=== PATIENT | male | born 1965 | race Caucasian/White ===

== ENCOUNTER → 2021-03-14 08:16 | Outpatient (CLI) | payer OTHER, SELFPAY ==
[2021-03-14 21:56] LABS: COVID19 - ORCAS (NP or Nasal) Negative (Negative)
== END ==
PROVIDERS: PCP Family Medicine; Visit Provider Physician Assistant Medical
DX: Z20.822 Contact with and (suspected) exposure to COVID-19 (principal)
CPT/HCPCS: U0003

== ENCOUNTER → 2021-05-23 08:24 | Outpatient (CLI) | payer OTHER, SELFPAY ==
[2021-05-23 18:59] LABS: Add Manual Diff / Slide Review NO; Basophils Absolute Auto 0 /uL (0-100); Basophils Percent Auto 0.8 % (0-2); Eosinophils Absolute Auto 200 /uL (0-450); Hematocrit 39.6 % (41-53); Lymphocytes Absolute Auto 1400 /uL (1100-4500); Lymphocytes Percent Auto 28.5 % (25-40); Mean Corpuscular HGB Conc 35.3 % (30-36); Mean Corpuscular Hemoglobin 29.6 PG (26-34); Mean Corpuscular Volume 83.9 fL (80-100); Monocytes Absolute Auto 400 /uL (0-900); Monocytes Percent Auto 9.3 % (3-14); Neutrophils Absolute Auto 2700 /uL (1500-7000); Neutrophils Percent Auto 56.4 % (50-75); Platelet Count 199 X10^3/uL (150-400); Red Blood Cell Count 4.72 X10^6/uL (4.5-5.9); Red Cell Distribution Width 13.5 % (11.6-14.8); White Blood Cell Count 4.8 X10^3/uL (4.5-11.0)
[2021-05-23 19:24] LABS: Alanine Aminotransferase 31 IU/L (<50); Albumin 4.1 g/dL (3.5-5.0); Albumin Globulin Ratio 1.5 (1.0-2.8); Alkaline Phosphatase 57 U/L (38-126); Aspartate Aminotransferase 34 IU/L (17-59); BUN Creatinine Ratio 11.4 (6-22); Bilirubin Total 0.5 mg/dL (0.2-1.3); Blood Urea Nitrogen 18 mg/dL (9-20); Calcium 9.6 mg/dL (8.4-10.2); Carbon Dioxide 30 mmol/L (22-32); Chloride 108 mmol/L (98-107); Cholesterol 218 mg/dL (140-199); Estimated Glomerular Filt Rate 45.9 mL/min (>60); Globulin 2.8 g/dL (1.7-4.1); Glucose 95 mg/dL (70-100); HDL Cholesterol 78 mg/dL (40-60); HEMOLYSIS < 15 (0-50); LDL Cholesterol Calculated 128 mg/dL (<100); Potassium 4.6 mmol/L (3.4-5.1); Sodium 142 mmol/L (137-145); Total Protein 6.9 g/dL (6.3-8.2); Triglycerides 60 mg/dL (35-150)
[2021-05-23 19:50] LABS: Prostate Specific Antigen Scrn 0.507 ng/mL (0.1-4.0)
== END ==
PROVIDERS: PCP Family Medicine; Visit Provider Physician Assistant
DX: N18.9 Chronic kidney disease, unspecified (principal); Z12.5 Encounter for screening for malignant neoplasm of prostate
CPT/HCPCS: 80053; 80061; 85025; G0103

== ENCOUNTER → 2021-09-18 09:33 | Outpatient (CLI) | payer OTHER, SELFPAY ==
[2021-09-18 19:09] LABS: Creatinine Urine Random 63.3 mg/dL
[2021-09-18 19:14] LABS: Microalbumi Creatinin Ratio Ur 22.1 ug/mg CR (<30); Microalbumin Urine Random 1.4 mg/dL (0-1.6)
== END ==
PROVIDERS: PCP Family Medicine; Visit Provider Physician Assistant Medical
DX: F32.5 Major depressive disorder, single episode, in full remission (principal); N17.9 Acute kidney failure, unspecified; N18.9 Chronic kidney disease, unspecified; N39.0 Urinary tract infection, site not specified; R33.9 Retention of urine, unspecified; R63.4 Abnormal weight loss
CPT/HCPCS: 82043; 82570

== ENCOUNTER → 2021-09-30 09:35 | Outpatient (CLI) | payer OTHER, SELFPAY ==
[2021-09-30 18:27] LABS: Alanine Aminotransferase 22 IU/L (<50); Albumin Globulin Ratio 1.4 (1.0-2.8); Alkaline Phosphatase 62 U/L (38-126); Aspartate Aminotransferase 31 IU/L (17-59); BUN Creatinine Ratio 13.5 (6-22); Bilirubin Total 0.5 mg/dL (0.2-1.3); Blood Urea Nitrogen 21 mg/dL (9-20); Calcium 9.1 mg/dL (8.4-10.2); Carbon Dioxide 29 mmol/L (22-32); Chloride 107 mmol/L (98-107); Cholesterol 198 mg/dL (140-199); Estimated Glomerular Filt Rate 53 mL/min (>60); Globulin 2.8 g/dL (1.7-4.1); Glucose 96 mg/dL (70-100); HDL Cholesterol 81 mg/dL (40-60); HEMOLYSIS < 15 (0-50); LDL Cholesterol Calculated 108 mg/dL (<100); Potassium 4.9 mmol/L (3.4-5.1); Sodium 141 mmol/L (137-145); Total Protein 6.8 g/dL (6.3-8.2); Triglycerides 47 mg/dL (35-150)
[2021-09-30 18:35] LABS: Add Manual Diff / Slide Review NO; Basophils Absolute Auto 100 /uL (0-100); Basophils Percent Auto 1.2 % (0-2); Eosinophils Absolute Auto 200 /uL (0-450); Hematocrit 40.9 % (41-53); Hemoglobin 14.3 g/dL (13.5-17.5); Lymphocytes Absolute Auto 1400 /uL (1100-4500); Lymphocytes Percent Auto 28.7 % (25-40); Mean Corpuscular HGB Conc 35.1 % (30-36); Mean Corpuscular Hemoglobin 29.5 PG (26-34); Mean Corpuscular Volume 84.1 fL (80-100); Monocytes Absolute Auto 400 /uL (0-900); Neutrophils Absolute Auto 2700 /uL (1500-7000); Neutrophils Percent Auto 57.1 % (50-75); Platelet Count 222 X10^3/uL (150-400); Red Blood Cell Count 4.86 X10^6/uL (4.5-5.9); Red Cell Distribution Width 13.3 % (11.6-14.8); White Blood Cell Count 4.8 X10^3/uL (4.5-11.0)
[2021-09-30 18:56] LABS: Prostate Specific Antigen Scrn 0.663 ng/mL (0.1-4.0)
[2021-09-30 18:58] LABS: TSH w/ Reflex to FT4 1.06 uIU/mL (0.47-4.68)
== END ==
PROVIDERS: PCP Family Medicine; Visit Provider Physician Assistant Medical
DX: F32.5 Major depressive disorder, single episode, in full remission (principal); N17.9 Acute kidney failure, unspecified; N18.9 Chronic kidney disease, unspecified; N39.0 Urinary tract infection, site not specified; R33.9 Retention of urine, unspecified; R63.4 Abnormal weight loss; Z12.5 Encounter for screening for malignant neoplasm of prostate
CPT/HCPCS: 80053; 80061; 84443; 85025; G0103

== ENCOUNTER → 2022-10-27 09:25 | Outpatient (CLI) | payer OTHER, SELFPAY ==
[2022-10-27 20:37] LABS: Urine Chlamydia NOT DETECTED; Urine N gonorrhoeae NOT DETECTED
== END ==
PROVIDERS: PCP Physician Assistant Medical; Visit Provider Physician Assistant
DX: R30.0 Dysuria (principal); N45.1 Epididymitis; Z11.3 Encounter for screening for infections with a predominantly sexual mode of transmission
CPT/HCPCS: 87086; 87491; 87591

== ENCOUNTER → 2022-10-28 13:50 | Outpatient (CLI) | payer OTHER, SELFPAY ==
[2022-10-28 19:33] LABS: Alanine Aminotransferase 22 IU/L (<50); Albumin 3.8 g/dL (3.5-5.0); Albumin Globulin Ratio 1.3 (1.0-2.8); Alkaline Phosphatase 67 U/L (38-126); Aspartate Aminotransferase 26 IU/L (17-59); BUN Creatinine Ratio 12.2 (6-22); Bilirubin Total 0.4 mg/dL (0.2-1.3); Blood Urea Nitrogen 19 mg/dL (9-20); Calcium 8.8 mg/dL (8.4-10.2); Carbon Dioxide 28 mmol/L (22-32); Chloride 105 mmol/L (98-107); Estimated Glomerular Filt Rate 52 mL/min (>60); Globulin 2.9 g/dL (1.7-4.1); Glucose 81 mg/dL (70-100); HEMOLYSIS < 15 (0-50); Potassium 4.1 mmol/L (3.4-5.1); Sodium 139 mmol/L (137-145); Total Protein 6.7 g/dL (6.3-8.2)
[2022-10-28 19:35] LABS: Add Manual Diff / Slide Review NO; Basophils Absolute Auto 0 /uL (0-100); Basophils Percent Auto 0.8 % (0-2); Eosinophils Absolute Auto 300 /uL (0-450); Eosinophils Percent Auto 4.8 % (2-4); Hematocrit 40.8 % (41-53); Hemoglobin 14.5 g/dL (13.5-17.5); Lymphocytes Absolute Auto 1500 /uL (1100-4500); Lymphocytes Percent Auto 25.8 % (25-40); Mean Corpuscular HGB Conc 35.4 % (30-36); Mean Corpuscular Hemoglobin 29.6 PG (26-34); Mean Corpuscular Volume 83.6 fL (80-100); Monocytes Absolute Auto 400 /uL (0-900); Monocytes Percent Auto 7.5 % (3-14); Neutrophils Absolute Auto 3500 /uL (1500-7000); Neutrophils Percent Auto 61.1 % (50-75); Platelet Count 217 X10^3/uL (150-400); Red Blood Cell Count 4.88 X10^6/uL (4.5-5.9); Red Cell Distribution Width 13.5 % (11.6-14.8); White Blood Cell Count 5.7 X10^3/uL (4.5-11.0)
[2022-10-28 20:01] LABS: Prostate Specific Antigen Scrn 0.965 ng/mL (0.1-4.0)
[2022-10-28 20:06] LABS: Hepatitis B Surface Antigen NEGATIVE s/c (NEGATIVE)
[2022-10-28 20:25] LABS: HIV 1 & 2 Ab/Ag 4th Gen Combo NEGATIVE (NEGATIVE); Hep C Virus Ab w/Reflex Quant NEGATIVE s/c (NEGATIVE)
[2022-10-30 03:05] LABS: HSV 2 IGG AB < 0.91 index (0.00-0.90); HSV1IGG < 0.91 index (0.00-0.90)
[2022-11-17 15:18] LABS: RPR Screen REACTIVE
== END ==
PROVIDERS: PCP Physician Assistant Medical; Visit Provider Physician Assistant
DX: N18.9 Chronic kidney disease, unspecified (principal); N45.1 Epididymitis; Z11.3 Encounter for screening for infections with a predominantly sexual mode of transmission; Z87.440 Personal history of urinary (tract) infections; Z12.5 Encounter for screening for malignant neoplasm of prostate
CPT/HCPCS: 80053; 85025; 86592; 86695; 86696; 86803; 87340; 87389; G0103

== ENCOUNTER → 2022-11-09 09:03 | Outpatient (CLI) | payer OTHER, SELFPAY ==
[2022-11-09 19:54] LABS: Appearance Urine UA CLEAR; Bilirubin Urine UA NEGATIVE (NEGATIVE); Color Urine UA YELLOW; Glucose Urine UA NEGATIVE (Negative); Ketones Urine UA NEGATIVE (NEGATIVE); Leukocyte Esterase Urine UA NEGATIVE (NEGATIVE); Nitrite Urine UA NEGATIVE (Negative); Occult Blood Urine UA NEGATIVE (Negative); Protein Urine UA NEGATIVE (Negative); Specific Gravity Urine UA <=1.005 (1.000-1.035); Urobilinogen Urine UA 0.2 E.U./dL (0.2)
[2022-11-09 20:05] LABS: Bacteria Urine None Seen; Culture Indicated Urine Cult Not Indicated; RBC Urine None Seen (0-5/HPF); Squamous Epithelial Cell Urine None Seen (0-5/HPF); WBC Urine None Seen (0-5/HPF)
[2022-11-09 20:13] LABS: Alanine Aminotransferase 23 IU/L (<50); Albumin 3.8 g/dL (3.5-5.0); Albumin Globulin Ratio 1.3 (1.0-2.8); Alkaline Phosphatase 66 U/L (38-126); Aspartate Aminotransferase 31 IU/L (17-59); BUN Creatinine Ratio 12.8 (6-22); Bilirubin Total 0.6 mg/dL (0.2-1.3); Blood Urea Nitrogen 19 mg/dL (9-20); Carbon Dioxide 26 mmol/L (22-32); Chloride 108 mmol/L (98-107); Cholesterol 188 mg/dL (140-199); Estimated Glomerular Filt Rate 55 mL/min (>60); Glucose 109 mg/dL (70-100); HDL Cholesterol 82 mg/dL (40-60); HEMOLYSIS < 15 (0-50); LDL Cholesterol Calculated 98 mg/dL (<100); Potassium 4.5 mmol/L (3.4-5.1); Sodium 138 mmol/L (137-145); Total Protein 6.8 g/dL (6.3-8.2); Triglycerides 40 mg/dL (35-150)
== END ==
PROVIDERS: PCP Physician Assistant Medical; Visit Provider Physician Assistant
DX: N18.9 Chronic kidney disease, unspecified (principal); Z87.440 Personal history of urinary (tract) infections
CPT/HCPCS: 80053; 80061; 81001

== ENCOUNTER → 2023-04-20 09:47 | Outpatient (CLI) | payer OTHER, SELFPAY ==
[2023-04-22 08:01] LABS: RPR Screen Non Reactive (Non Reactive)
[2023-04-27 06:42] LABS: Percent Free Testosterone 1.34 % (1.50-4.20); Testosterone Free 7.83 ng/dL (5.00-21.00); Testosterone Total 584.5 ng/dL (264.0-916.0)
== END ==
PROVIDERS: PCP Physician Assistant; Visit Provider Physician Assistant
DX: N52.9 Male erectile dysfunction, unspecified (principal); Z72.51 High risk heterosexual behavior; Z20.9 Contact with and (suspected) exposure to unspecified communicable disease
CPT/HCPCS: 84402; 84403; 86592

== ENCOUNTER → 2024-02-17 09:41 | Outpatient (CLI) | payer BC, SELFPAY ==
[2024-02-17 18:54] LABS: Add Manual Diff / Slide Review NO; Basophils Absolute Auto 0 /uL (0-100); Basophils Percent Auto 0.7 % (0-2); Eosinophils Absolute Auto 200 /uL (0-450); Eosinophils Percent Auto 3.8 % (2-4); Hemoglobin 14.4 g/dL (13.5-17.5); Lymphocytes Absolute Auto 1400 /uL (1100-4500); Mean Corpuscular HGB Conc 34.2 % (30-36); Mean Corpuscular Hemoglobin 29.2 PG (26-34); Mean Corpuscular Volume 85.4 fL (80-100); Monocytes Absolute Auto 600 /uL (0-900); Monocytes Percent Auto 10.9 % (3-14); Neutrophils Absolute Auto 2900 /uL (1500-7000); Neutrophils Percent Auto 56.6 % (50-75); Platelet Count 153 X10^3/uL (150-400); Red Blood Cell Count 4.92 X10^6/uL (4.5-5.9); Red Cell Distribution Width 13.6 % (11.6-14.8); White Blood Cell Count 5.1 X10^3/uL (4.5-11.0)
[2024-02-17 19:02] LABS: HEMOLYSIS < 15 (0-50)
[2024-02-17 19:09] LABS: Alanine Aminotransferase 23 IU/L (<50); Albumin 3.9 g/dL (3.5-5.0); Albumin Globulin Ratio 1.3 (1.0-2.8); Alkaline Phosphatase 58 U/L (38-126); Aspartate Aminotransferase 35 IU/L (17-59); BUN Creatinine Ratio 14.8 (6-22); Bilirubin Total 0.6 mg/dL (0.2-1.3); Blood Urea Nitrogen 22 mg/dL (9-20); Calcium 9.3 mg/dL (8.4-10.2); Carbon Dioxide 28 mmol/L (22-32); Chloride 106 mmol/L (98-107); Cholesterol 208 mg/dL (140-199); Estimated Glomerular Filt Rate 55 mL/min (>60); Glucose 96 mg/dL (70-100); HDL Cholesterol 83 mg/dL (40-60); LDL Cholesterol Calculated 115 mg/dL (<100); Potassium 4.5 mmol/L (3.4-5.1); Sodium 139 mmol/L (137-145); Total Protein 6.9 g/dL (6.3-8.2); Triglycerides 48 mg/dL (35-150)
[2024-02-17 20:20] LABS: Prostate Specific Antigen Scrn 0.634 ng/mL (0.1-4.0)
== END ==
PROVIDERS: PCP Physician Assistant; Visit Provider Physician Assistant
DX: N18.9 Chronic kidney disease, unspecified (principal); Z12.5 Encounter for screening for malignant neoplasm of prostate; R42 Dizziness and giddiness; Z79.899 Other long term (current) drug therapy; Z13.6 Encounter for screening for cardiovascular disorders
CPT/HCPCS: 80053; 80061; 85025; G0103

== ENCOUNTER → 2024-03-13 08:39 | Outpatient (CLI) | payer BC, SELFPAY ==
[2024-02-14 20:37] LABS: Fecal Immunochemical Test Negative (Negative)
== END ==
PROVIDERS: PCP Physician Assistant; Referring Provider Physician Assistant; Visit Provider Physician Assistant
DX: Z12.11 Encounter for screening for malignant neoplasm of colon (principal)
CPT/HCPCS: 82274

== ENCOUNTER 2024-07-03 18:14 | Emergency (ER) | payer BC, SELFPAY ==
[2024-07-03 18:38] VITALS: BP 122/78; PULSE 65; RESP 18; TEMP 36.9; O2SAT 99; BMI 22.9
--- NOTE | 2024-07-03 18:43 | DI.RAD.S_ITS ---
PROCEDURE: XR CHEST 1V INDICATIONS: chest pain TECHNIQUE: One view of the chest was acquired. COMPARISON: None. FINDINGS: Surgical changes and devices: None. Lungs and pleura: Lungs are clear. No pleural effusions or pneumothorax. Mediastinum: Mediastinal contours appear normal. Heart size is normal. Bones and chest wall: No suspicious bony lesions. Overlying soft tissues appear unremarkable. IMPRESSION: No acute pulmonary process. Dictated by: Carolyne Rodriguez M.D. on 07/03/2024 at 19:31 Approved by: Carolyne Rodriguez M.D. on 07/03/2024 at 19:31
--- NOTE | 2024-07-03 18:43 | EKG_ITS ---
[place] [address] [address] [place] [id number] Test Date: 2024-07-03 Pat Name: Timothy Baez Department: [facility] Room: Gender: Male Regulatory Internship: NEGRO : 1965 Requested By: Order Number: [id number] Reading MD: Eddie Mena Measurements Intervals [place] Rate: 58 P: 59 RI: 168 QRS: 52 QRSD: 78 T: 73 QT: 388 QTc: 380 Interpretive Statements Sinus bradycardia Electronically Signed On 07-04-2024 11:13:20 PST by Eddie Mena
[2024-07-03 19:17] LABS: Add Manual Diff / Slide Review NO; Basophils Absolute Auto 0 /uL (0-100); Basophils Percent Auto 0.9 % (0-2); Eosinophils Absolute Auto 200 /uL (0-450); Eosinophils Percent Auto 3.4 % (2-4); Hemoglobin 15.2 g/dL (13.5-17.5); Lymphocytes Absolute Auto 1900 /uL (1100-4500); Lymphocytes Percent Auto 34.3 % (25-40); Mean Corpuscular HGB Conc 34.6 % (30-36); Mean Corpuscular Hemoglobin 29.4 PG (26-34); Mean Corpuscular Volume 85.2 fL (80-100); Monocytes Absolute Auto 500 /uL (0-900); Monocytes Percent Auto 8.2 % (3-14); Neutrophils Absolute Auto 3000 /uL (1500-7000); Neutrophils Percent Auto 53.2 % (50-75); Platelet Count 215 X10^3/uL (150-400); Red Blood Cell Count 5.17 X10^6/uL (4.5-5.9); Red Cell Distribution Width 13.7 % (11.6-14.8); White Blood Cell Count 5.5 X10^3/uL (4.5-11.0)
[2024-07-03 19:26] LABS: Prothrombin Time 11.1 SECONDS (9.4-12.5)
[2024-07-03 19:29] LABS: PTT Partial Thromboplastin Tim 34 SECONDS (25.1-36.5)
[2024-07-03 19:33] LABS: Alanine Aminotransferase 20 IU/L (<50); Albumin 4.4 g/dL (3.5-5.0); Albumin Globulin Ratio 1.4 (1.0-2.8); Alkaline Phosphatase 52 U/L (38-126); Aspartate Aminotransferase 28 IU/L (17-59); BUN Creatinine Ratio 14.1 (6-22); Bilirubin Total 0.4 mg/dL (0.2-1.3); Blood Urea Nitrogen 22 mg/dL (9-20); Calcium 9.3 mg/dL (8.4-10.2); Carbon Dioxide 27 mmol/L (22-32); Chloride 105 mmol/L (98-107); Creatine Kinase 67 U/L (55-170); Estimated Glomerular Filt Rate 51 mL/min (>60); Globulin 3.1 g/dL (1.7-4.1); Glucose 96 mg/dL (70-100); HEMOLYSIS < 15 (0-50); Lipase 109 U/L (23-300); Magnesium 1.9 mg/dL (1.6-2.3); Potassium 3.6 mmol/L (3.4-5.1); Sodium 140 mmol/L (137-145); Total Protein 7.5 g/dL (6.3-8.2)
[2024-07-03 19:44] LABS: NT-proBNP (BNP-Adult 18+) 50 pg/mL (<125); Troponin I < 0.012 ng/mL (0.01-0.034)
== END 2024-07-03 20:23 | disposition left against medical advice (07) ==
PROVIDERS: Emergency Provider Student in an Organized Health Care Education/Training Program; PCP Physician Assistant
DX: R07.9 Chest pain, unspecified (principal); R00.2 Palpitations; R00.1 Bradycardia, unspecified
CPT/HCPCS: 71045; 80053; 82550; 83690; 83735; 83880; 84484; 85025; 85610; 85730; 93005; 99281

== ENCOUNTER → 2024-08-14 11:46 | Outpatient (CLI) | payer BC, SELFPAY ==
[2024-08-14 19:03] LABS: Alanine Aminotransferase 26 IU/L (<50); Albumin 4.4 g/dL (3.5-5.0); Albumin Globulin Ratio 1.3 (1.0-2.8); Alkaline Phosphatase 69 U/L (38-126); Aspartate Aminotransferase 46 IU/L (17-59); Bilirubin Total 0.6 mg/dL (0.2-1.3); Blood Urea Nitrogen 18 mg/dL (9-20); Calcium 9.4 mg/dL (8.4-10.2); Carbon Dioxide 26 mmol/L (22-32); Chloride 103 mmol/L (98-107); Estimated Glomerular Filt Rate 48 mL/min (>60); Globulin 3.3 g/dL (1.7-4.1); Glucose 131 mg/dL (70-100); HEMOLYSIS 35 (0-50); Potassium 4.1 mmol/L (3.4-5.1); Sodium 138 mmol/L (137-145); Total Protein 7.7 g/dL (6.3-8.2)
== END ==
PROVIDERS: PCP Physician Assistant; Visit Provider Physician Assistant
DX: N18.9 Chronic kidney disease, unspecified (principal); Z79.899 Other long term (current) drug therapy
CPT/HCPCS: 80053

== ENCOUNTER → 2025-02-07 09:45 | Outpatient (CLI) | payer BC, SELFPAY ==
[2025-02-07 19:08] LABS: Microalbumi Creatinin Ratio Ur 71.0 ug/mg CR (<30)
== END ==
PROVIDERS: PCP Physician Assistant; Visit Provider Physician Assistant
DX: J02.9 Acute pharyngitis, unspecified (principal); R43.8 Other disturbances of smell and taste; N18.9 Chronic kidney disease, unspecified
CPT/HCPCS: 82043; 82570; 87070

== ENCOUNTER → 2025-03-01 09:45 | Outpatient (CLI) | payer BC, SELFPAY ==
[2025-03-01 19:06] LABS: Add Manual Diff / Slide Review NO; Hematocrit 41.6 % (41-53); Hemoglobin 14.7 g/dL (13.5-17.5); Lymphocytes Absolute Auto 1300 /uL (1100-4500); Mean Corpuscular HGB Conc 35.4 % (30-36); Mean Corpuscular Hemoglobin 30.0 PG (26-34); Mean Corpuscular Volume 84.7 fL (80-100); Platelet Count 207 X10^3/uL (150-400)
[2025-03-01 19:08] LABS: Alanine Aminotransferase 20 IU/L (<50); Albumin 4.6 g/dL (3.5-5.0); Albumin Globulin Ratio 1.6 (1.0-2.8); Alkaline Phosphatase 59 U/L (38-126); Blood Urea Nitrogen 20 mg/dL (9-20); Calcium 9.8 mg/dL (8.4-10.2); Carbon Dioxide 27 mmol/L (22-32); Chloride 103 mmol/L (98-107); Cholesterol 212 mg/dL (140-199); Estimated Glomerular Filt Rate 59 mL/min (>60); Globulin 2.9 g/dL (1.7-4.1); Glucose 89 mg/dL (70-99); HDL Cholesterol 98 mg/dL (40-60); HEMOLYSIS < 15 (0-50); Potassium 4.4 mmol/L (3.4-5.1); Sodium 139 mmol/L (137-145); Total Protein 7.5 g/dL (6.3-8.2); Triglycerides 62 mg/dL (35-150)
[2025-03-01 19:42] LABS: Microalbumi Creatinin Ratio Ur 72.0 ug/mg CR (<30)
== END ==
PROVIDERS: PCP Physician Assistant; Visit Provider Physician Assistant
DX: Z13.6 Encounter for screening for cardiovascular disorders (principal); N18.9 Chronic kidney disease, unspecified; R43.8 Other disturbances of smell and taste; Z12.5 Encounter for screening for malignant neoplasm of prostate; N28.9 Disorder of kidney and ureter, unspecified
CPT/HCPCS: 80053; 80061; 82043; 82570; 85025; G0103